=== PATIENT | female | born 1945 | race Caucasian/White ===

== ENCOUNTER 2017-09-15 18:36 | Emergency (ER) | payer MEDICARE, OTHER ==
--- NOTE | 2017-09-15 18:39 | ER Report ---
History and Physical Time Seen By MD: 18:38 HPI/ROS CHIEF COMPLAINT: Shortness of breath HISTORY OF PRESENT ILLNESS: Patient is a 71-year-old female here with complaints of shortness breath which has intermittently been worsening over the past 8 days well on a road trip. Patient has a reported history of COPD, heart failure and reports significant improvement after EMS gave her a DuoNeb. She also reports not taking her diuretic because she is on a road trip. She has had several episodes similar to this over the past several days which she reports caused her similar difficulty breathing, improved with her nebulizers. At baseline, the patient is on 2 L nasal cannula during the day and a breathing machine at night. She is currently on 4 L nasal cannula maintaining sats at 95% . She reports moderate relief of respiratory distress since receiving her nebulizer treatments. Last nebulizer treatments for this morning. Patient is accompanied by her sister. REVIEW OF SYSTEMS: Constitutional: No fever, no chills. Eyes: No discharge. ENT: No sore throat. Cardiovascular: No chest pain, + mid chest pressure, no palpitations. Respiratory: + intermittent dry cough, ++ shortness of breath on nasal cannula. Gastrointestinal: No abdominal pain, no vomiting. Genitourinary: No hematuria. Musculoskeletal: No back pain. Skin: No rashes. Neurological: No headache. Allergies: Coded Allergies: metoclopramide (Verified Allergy, Severe, ANAPHYLAXIS, 09/15/17) Home Meds Active Scripts Levofloxacin 750 Mg Tab (LEVAQUIN 750 MG TAB) 750 Mg Tablet, 750 MG PO QDAY for 4 Days, #4 TAB Prov:RONALD JENKINS DO 09/15/17 Prednisone (PREDNISONE) 20 Mg Tablet, 40 MG PO QDAY for 4 Days, #8 TAB Prov:JENKINSRONALD ENNIS S DO 09/15/17 Reported Medications Guaifenesin (MUCINEX) 600 Mg Tablet.er, 600 MG PO 09/15/17 Mv, Min #36/Iron,Carbonyl/Fa (GERITOL COMPLETE TABLET) 1 Each Tablet, 1 EACH PO QDAY 09/15/17 Cinnamon Bark (CINNAMON) 500 Mg Capsule, 1000 MG PO QDAY, CAPSULE 09/15/17 Calcium Carbonate/Mag Oxide/Zn (FDNKWRT-ELXDUMERZ-CIZI CAPLET) 1 Each Tablet, 1 EACH PO QDAY 09/15/17 Vitamin B Complex & Vit C No.4 (SUPER B COMPLEX) 150 Mg Tablet, 150 MG PO QDAY 09/15/17 Biotin (BIOTIN) 10 Mg Tablet, 10 MG PO 09/15/17 Aspirin (ASPIR 81) 81 Mg Tablet.dr, 81 MG PO QDAY, TAB 09/15/17 Ergocalciferol (Vitamin D2) (ERGOCALCIFEROL) 8,000 Unit/1 Ml Drops, 61579 UNIT PO 09/15/17 Sucralfate (CARAFATE) 1 Gm Tablet, 1 GM PO QDAY 09/15/17 Potassium Chloride (KLOR-CON 10) 10 Meq Tablet.er, 10 MEQ PO QDAY 09/15/17 Losartan Potassium (LOSARTAN POTASSIUM) 50 Mg Tablet, 50 MG PO QDAY 09/15/17 Glimepiride (AMARYL) 2 Mg Tablet, 2 MG PO BID 09/15/17 Pitavastatin Calcium (LIVALO) 2 Mg Tablet, 2 MG PO 09/15/17 Nitroglycerin (NITROSTAT) 0.4 Mg Subl, 0.4 MG SL Q5MIN 09/15/17 Mupirocin Calcium (BACTROBAN) 15 Gm Cream..g., 0 TP TID 09/15/17 Fluticasone Prop 50 Mcg Ns (FLONASE 50 MCG NS) 16 Gm Willow.susp, 1 SPRAY NS BID , BOT 09/15/17 Furosemide (LASIX) 20 Mg Tablet, 1 TAB PO Q8H, TAB 09/15/17 Etodolac (ETODOLAC) 400 Mg Tablet, 400 MG PO PRN 09/15/17 Nystatin (Nystatin) 100,000 Unit/Ml Oral.susp, 1 ML PO PRN 09/15/17 Roflumilast (DALIRESP) 0.5 Mg Tab, 0.5 MG PO QDAY, TAB 09/15/17 Budesonide (PULMICORT) 1 Mg/2 Ml Ampul.neb, 1 MG IH BID, ML 09/15/17 Arformoterol Tartrate (BROVANA) 15 Mcg/2 Ml Vial.neb, 15 MCG IH QAM 09/15/17 Albuterol Sulfate 0.083% (ALBUTEROL SULFATE 0.083%) 2.5 Mg/3 Ml Vial.neb, 2.5 MG INH PRN, INH 09/15/17 Albuterol Sulfate 90 Mcg/Act (PROAIR HFA 90 MCG/ACT) 8.5 Gm Hfa.aer.ad, 2 PUFF IH Q4-6H, INHALER 09/15/17 Past Medical/Surgical History Myocardial infarction, heart failure, hypertension, hyperlipidemia and PE, GERD , diabetes Constitutional Vital Sign - Last 24 Hours 09/15/17 09/15/17 09/15/17 09/15/17 18:36 18:38 18:39 18:51 Temp 98.2 Pulse 114 Resp 24 B/P (MAP) 138/122 138/122 (127) 167/83 (111) Pulse Ox 92 89 O2 Delivery Nasal Cannula 09/15/17 09/15/17 09/15/17 09/15/17 19:00 19:06 19:10 19:15 Pulse 93 95 Resp 17 16 B/P (MAP) 182/80 (114) Pulse Ox 94 O2 Flow Rate 4.0 09/15/17 09/15/17 09/15/17 09/15/17 19:51 19:56 19:56 20:00 Pulse 95 Resp 16 B/P (MAP) 158/142 (147) 208/71 (116) Pulse Ox 95 O2 Delivery Nasal Cannula O2 Flow Rate 4.0 09/15/17 09/15/17 09/15/17 09/15/17 20:06 20:11 20:41 20:46 Pulse 85 90 93 95 Resp 9 17 B/P (MAP) 186/86 (119) Pulse Ox 99 96 96 97 09/15/17 09/15/17 09/15/17 20:59 21:01 21:05 B/P (MAP) 207/99 (135) 230/108 (148) 188/98 (128) Physical Exam General Appearance: The patient is alert, has no immediate need for airway protection and no signs of toxicity. + mild respiratory distress, making full sentences, no accessory muscle use Eyes: Pupils equal and round no pallor or injection. ENT, Mouth: Mucous membranes are moist. Respiratory: + diffuse wheezing b/l lungs, + diminished at bases Cardiovascular: Sinus tachycardia Gastrointestinal: Abdomen is soft and non tender, no masses, bowel sounds normal. Neurological: No focal deficits Skin: Warm and dry, no rashes. Musculoskeletal: Neck is supple non tender. Extremities are nontender, nonswollen and have full range of motion. DIFFERENTIAL DIAGNOSIS: After history and physical exam differential diagnosis was considered for shortness of breath including but not limited to pulmonary infectious process, COPD, asthma, pulmonary embolus and congestive heart failure. Medical Decision Making Data Points Result Diagram: 09/15/17183909/15/171839 Laboratory Hematology Test 09/15/17 18:40 09/15/17 19:45 Red Blood Count 5.13 M/uL (4.17-5.56) Mean Corpuscular Volume 88.0 fL (80.0-96.0) Mean Corpuscular Hemoglobin 29.2 pg (26.0-33.0) Mean Corpuscular Hemoglobin Concent 33.2 g/dL (32.0-36.0) Red Cell Distribution Width 14.2 % (11.5-14.5) Mean Platelet Volume 7.7 fL (7.2-11.1) Neutrophils (%) (Auto) 41.7 % (39.4-72.5) Lymphocytes (%) (Auto) 46.8 % (17.6-49.6) Monocytes (%) (Auto) 6.3 % (4.1-12.4) Eosinophils (%) (Auto) 4.1 % (0.4-6.7) Basophils (%) (Auto) 1.1 % (0.3-1.4) Nucleated RBC Relative Count (auto) 0.1 /100WBC Neutrophils # (Auto) 6.4 K/uL (2.0-7.4) Lymphocytes # (Auto) 7.1 K/uL (1.3-3.6) Monocytes # (Auto) 1.0 K/uL (0.3-1.0) Eosinophils # (Auto) 0.6 K/uL (0.0-0.5) Basophils # (Auto) 0.2 K/uL (0.0-0.1) Nucleated RBC Absolute Count (auto) 0.02 K/uL Peripheral Blood Smear Yes Y/N Sodium Level 141 mmol/L (137-145) Potassium Level 4.1 mmol/L (3.5-5.0) Chloride Level 100 mmol/L (98-107) Carbon Dioxide Level 30 mmol/L (22-31) Blood Urea Nitrogen 17 mg/dl (7-18) Creatinine 0.90 mg/dl (0.52-1.04) Glomerular Filtration Rate Calc > 60.0 Random Glucose 190 mg/dl (75-110) Calcium Level 9.4 mg/dl (8.4-10.2) Total Bilirubin 0.4 mg/dl (0.2-1.3) Aspartate Amino Transf (AST/SGOT) 60 U/L (0-35) Alanine Aminotransferase (ALT/SGPT) 74 U/L (0-56) Alkaline Phosphatase 112 U/L (0-126) Troponin I < 0.012 ng/ml B-Type Natriuretic Peptide 79 pg/ml (0-100) Total Protein 7.9 g/dl (6.3-8.2) Albumin 4.1 g/dl (3.5-5.0) Urine Color Yellow Urine Clarity Slightly-cloudy Urine pH 5.0 pH (4.8-9.5) Urine Specific [place] 1.017 Urine Protein 100 mg/dL (NEGATIVE) Urine Glucose (UA) 500 mg/dL (NEGATIVE) Urine Ketones Negative mg/dL (NEGATIVE) Urine Blood Negative (NEGATIVE) Urine Nitrite Negative (NEGATIVE) Urine Bilirubin Negative (NEGATIVE) Urine Urobilinogen Negative mg/dL (0.2-1.9) Urine Leukocyte Esterase Small (NEGATIVE) Urine RBC 1 /HPF (0-2/HPF) Urine WBC 76 /HPF (0-5/HPF) Urine Squamous Epithelial Cells Many /LPF (</=FEW) Urine Bacteria Many /HPF (NONE-FEW) Urine Mucus Few /HPF (NONE-FEW) Chemistry Test 09/15/17 18:40 09/15/17 19:45 White Blood Count 15.2 k/uL (4.5-11.0) Red Blood Count 5.13 M/uL (4.17-5.56) Hemoglobin 15.0 g/dL (12.0-16.0) Hematocrit 45.2 % (34.0-47.0) Mean Corpuscular Volume 88.0 fL (80.0-96.0) Mean Corpuscular Hemoglobin 29.2 pg (26.0-33.0) Mean Corpuscular Hemoglobin Concent 33.2 g/dL (32.0-36.0) Red Cell Distribution Width 14.2 % (11.5-14.5) Platelet Count 393 K/uL (150-450) Mean Platelet Volume 7.7 fL (7.2-11.1) Neutrophils (%) (Auto) 41.7 % (39.4-72.5) Lymphocytes (%) (Auto) 46.8 % (17.6-49.6) Monocytes (%) (Auto) 6.3 % (4.1-12.4) Eosinophils (%) (Auto) 4.1 % (0.4-6.7) Basophils (%) (Auto) 1.1 % (0.3-1.4) Nucleated RBC Relative Count (auto) 0.1 /100WBC Neutrophils # (Auto) 6.4 K/uL (2.0-7.4) Lymphocytes # (Auto) 7.1 K/uL (1.3-3.6) Monocytes # (Auto) 1.0 K/uL (0.3-1.0) Eosinophils # (Auto) 0.6 K/uL (0.0-0.5) Basophils # (Auto) 0.2 K/uL (0.0-0.1) Nucleated RBC Absolute Count (auto) 0.02 K/uL Peripheral Blood Smear Yes Y/N Glomerular Filtration Rate Calc > 60.0 Calcium Level 9.4 mg/dl (8.4-10.2) Total Bilirubin 0.4 mg/dl (0.2-1.3) Aspartate Amino Transf (AST/SGOT) 60 U/L (0-35) Alanine Aminotransferase (ALT/SGPT) 74 U/L (0-56) Alkaline Phosphatase 112 U/L (0-126) Troponin I < 0.012 ng/ml B-Type Natriuretic Peptide 79 pg/ml (0-100) Total Protein 7.9 g/dl (6.3-8.2) Albumin 4.1 g/dl (3.5-5.0) Urine Color Yellow Urine Clarity Slightly-cloudy Urine pH 5.0 pH (4.8-9.5) Urine Specific [place] 1.017 Urine Protein 100 mg/dL (NEGATIVE) Urine Glucose (UA) 500 mg/dL (NEGATIVE) Urine Ketones Negative mg/dL (NEGATIVE) Urine Blood Negative (NEGATIVE) Urine Nitrite Negative (NEGATIVE) Urine Bilirubin Negative (NEGATIVE) Urine Urobilinogen Negative mg/dL (0.2-1.9) Urine Leukocyte Esterase Small (NEGATIVE) Urine RBC 1 /HPF (0-2/HPF) Urine WBC 76 /HPF (0-5/HPF) Urine Squamous Epithelial Cells Many /LPF (</=FEW) Urine Bacteria Many /HPF (NONE-FEW) Urine Mucus Few /HPF (NONE-FEW) Urinalysis Test 09/15/17 19:45 Urine Color Yellow Urine Clarity Slightly-cloudy Urine pH 5.0 pH (4.8-9.5) Urine Specific [place] 1.017 Urine Protein 100 mg/dL (NEGATIVE) Urine Glucose (UA) 500 mg/dL (NEGATIVE) Urine Ketones Negative mg/dL (NEGATIVE) Urine Blood Negative (NEGATIVE) Urine Nitrite Negative (NEGATIVE) Urine Bilirubin Negative (NEGATIVE) Urine Urobilinogen Negative mg/dL (0.2-1.9) Urine Leukocyte Esterase Small (NEGATIVE) Urine RBC 1 /HPF (0-2/HPF) Urine WBC 76 /HPF (0-5/HPF) Urine Squamous Epithelial Cells Many /LPF (</=FEW) Urine Bacteria Many /HPF (NONE-FEW) Urine Mucus Few /HPF (NONE-FEW) EKG/Imaging EKG Interpretation 12 lead EKG: Sinus tachycardia, rate 103, no ischemic changes or T-wave abnormalities, QTc interval 471 Rhythm: Sinus tachycardia regular rhythm [place]: normal QRS: normal ST segments: normal Monitor Interpretation: Normal Sinus Rhythm Imaging 2 VIEWS CHEST INDICATION: Respiratory distress. Chest pain. COMPARISON: None available FINDINGS: Cardiomediastinal silhouette and pulmonary vessels within normal limits. There is no focal infiltrate or lobar consolidation. There is no pneumothorax or pleural effusion. On the inferior posterior aspect of the lungs on the lateral view there is a small nodular opacity overlying the posterior elements of the spine. This not appreciated on the frontal view. No other nodules. Chronic interstitial changes. Upper abdomen is unremarkable. No acute bony abnormality. IMPRESSION: 1. No acute cardiopulmonary process. 2. On the lateral view there is question of a nodular opacity seen in the inferior posterior aspect of the chest. Unsure if this is a lung nodule or overlapping structures. A follow-up bilateral, shallow oblique view of the lateral chest can evaluate for overlapping shadows or a parenchymal nodule. ED Course/Re-evaluation ED Course Patient is a 71-year-old female here with complaints of shortness breath, mid sternal chest pressure in the setting of COPD, CHF, diabetes, prior history of cardiac disease, status post IA. Patient reports worsening shortness breath while on her road trip from [place]. She does use supplemental oxygen baseline however requires more oxygen today, currently 4 L instead of 2 L baseline. She has noted that her oxygen levels on a sliding liters has dropped into the 70s. Patient also notes that she has been taking less diuretic than usual because of her trip. She did have significant relief of symptoms with DuoNeb and this is administered by EMS shortly prior to arrival. She did complain of having similar episodes throughout the course of the last 8 days. Patient is mentating appropriately at time of evaluation, in no acute distress. EKG showed no ischemic changes. Patient is likely suffering from symptoms of COPD exacerbation or CHF exacerbation due to clinical presentation however due to patient history, a cardiac enzyme was added as well and was undetectable. Chest x-ray showed no acute effusions or consolidations. Patient was given duonebs, prednisone. Patient responded well to treatments and was ambulating without significant shortness of breath. I discussed the findings with the patient and she voiced understanding. I discussed the patient with Dr. Molina who agreed that the patient was suitable for outpatient treatment for COPD exacerbation. She was given scripts for prednisone and Levaquin and was stable at time of discharge, well-appearing in no acute distress. Decision to Disposition Date: Sep 15, 2017 Decision to Disposition Time: 21:36 Depart Departure Latest Vital Signs Vital Signs Date Time Temp Pulse Resp B/P (MAP) Pulse Ox O2 Delivery O2 Flow Rate FiO2 09/15/17 21:05 188/98 (128) 09/15/17 20:46 95 97 09/15/17 20:11 17 09/15/17 19:56 Nasal Cannula 4.0 09/15/17 18:38 98.2 Impression: Primary Impression: Shortness of breath Additional Impression: COPD exacerbation Condition: Improved Disposition: HOME OR SELF-CARE New Scripts Levofloxacin 750 Mg Tab (LEVAQUIN 750 MG TAB) 750 Mg Tablet 750 MG PO QDAY for 4 Days, #4 TAB Prov: RONALD JENKINS DO 09/15/17 Prednisone (PREDNISONE) 20 Mg Tablet 40 MG PO QDAY for 4 Days, #8 TAB Prov: RONALD JENKINS DO 09/15/17 Patient Instructions: COPD (Chronic Obstructive Pulmonary Disease) (ED) Additional Instructions: Please take one tablet of Levaquin daily for the next 4 days, you received your 1st dose here today. Please take 2 tablets of prednisone daily for the next 4 days. Please continue taking her nebulizer treatments and inhalers as prescribed. Please return promptly if you develop fevers, difficulty breathing, chest pains, worsening shortness of breath.You may take 2-6 puffs of pro-air every 6 hours by having an episode of difficulty breathing. Problem Qualifiers RONALD JENKINS DO Sep 15, 2017 18:39
[2017-09-15] MEDS ORDERED: predniSONE 20 MG TAB PO ONE (18:40)
--- NOTE | 2017-09-15 19:01 | EKG ---
FACILITY: PATIENT NAME: MADELIN ZABALA : [id number] MR: [id number] V: [id number] EXAM DATE: ORDERING PHYSICIAN: RONALD JENKINS TECHNOLOGIST: DEEPA Bejarano Reason : Blood Pressure : / mmHG Vent. Rate : 103 BPM Atrial Rate : 103 BPM P-R Int : 166 ms QRS Dur : 098 ms QT Int : 360 ms P-R-T Axes : 071 076 069 degrees QTc Int : 471 ms Sinus tachycardia Otherwise normal ECG No previous ECGs available Confirmed by JOSE ANGEL CEDEÑO ([id number]) on 09/16/2017 6:48:15 AM Referred By: IRIS Confirmed By:JOSE ANGEL CEDEÑO
[2017-09-15] MEDS: ALBUTEROL/IPRATROPIUM 3 ML NEB NEB SCH ×2 (19:10→19:56)
[2017-09-15 19:12] LABS: PLATELET COUNT, AUTOMATED 393 K/uL (150-450)
[2017-09-15] MEDS ORDERED: BUDE1AMP2 IH (19:14)
[2017-09-15] MEDS ORDERED: [UNRECOGNIZED DRUG - CODE] PO (19:14)
[2017-09-15] MEDS ORDERED: LOSA50TA72 PO (19:14)
[2017-09-15] MEDS ORDERED: ROF0.5PT PO (19:14)
[2017-09-15] MEDS ORDERED: GLIM2TAB42 PO (19:14)
[2017-09-15] MEDS ORDERED: ALBU2.5V36 INH (19:14)
[2017-09-15] MEDS ORDERED: MUPI15CR10 TP (19:14)
[2017-09-15] MEDS ORDERED: PITA2TAB PO (19:14)
[2017-09-15] MEDS ORDERED: POTA-23 PO (19:14)
[2017-09-15] MEDS ORDERED: ASPI-1471 PO (19:14)
[2017-09-15] MEDS ORDERED: NIT4 SL (19:14)
[2017-09-15] MEDS ORDERED: FURO20TA19 PO (19:14)
[2017-09-15] MEDS ORDERED: ALBU8.5H IH (19:14)
[2017-09-15] MEDS ORDERED: GUAI600T57 PO (19:14)
[2017-09-15] MEDS ORDERED: IRON1TAB PO (19:14)
[2017-09-15] MEDS ORDERED: [UNRECOGNIZED DRUG - CODE] PO (19:14)
[2017-09-15] MEDS ORDERED: VITA150T2 PO (19:14)
[2017-09-15] MEDS ORDERED: SUCR1TAB85 PO (19:14)
[2017-09-15] MEDS ORDERED: ETOD-1 PO (19:14)
[2017-09-15] MEDS ORDERED: FLUT16SP19 NS (19:14)
[2017-09-15] MEDS ORDERED: NYST100016 PO (19:14)
[2017-09-15] MEDS ORDERED: ARFO15VI IH (19:14)
[2017-09-15] MEDS ORDERED: BIOT10TA3 PO (19:14)
[2017-09-15] MEDS ORDERED: CINN500C12 PO (19:14)
[2017-09-15] MEDS ORDERED: LEVOFLOXACIN 750 MG TAB PO ONE (19:45)
[2017-09-15] MEDS ORDERED: LEVO750T44 PO (19:46)
[2017-09-15] MEDS ORDERED: PRED20TA6 PO (19:46)
--- NOTE | 2017-09-15 19:59 | RADIOLOGY IMAGING REPORT ---
FACILITY: [facility] - [place] PATIENT NAME: Chrissy Camp : 1945 MR: [id number] V: [id number] EXAM DATE: ORDERING PHYSICIAN: RONALD JENKINS TECHNOLOGIST: Location: [facility] [place] Patient: Chrissy Camp : 1945 Visit/Account:[id number] Date of Sevice: 09/15/2017 2 VIEWS CHEST INDICATION: Respiratory distress. Chest pain. COMPARISON: None available FINDINGS: Cardiomediastinal silhouette and pulmonary vessels within normal limits. There is no focal infiltrate or lobar consolidation. There is no pneumothorax or pleural effusion. On the inferior posterior aspect of the lungs on the lateral view there is a small nodular opacity ov erlying the posterior elements of the spine. This not appreciated on the frontal view. No other nodul es. Chronic interstitial changes. Upper abdomen is unremarkable. No acute bony abnormality. IMPRESSION: 1. No acute cardiopulmonary process. 2. On the lateral view there is question of a nodular opacity seen in the inferior posterior aspect o f the chest. Unsure if this is a lung nodule or overlapping structures. A follow-up bilateral, shallo w oblique view of the lateral chest can evaluate for overlapping shadows or a parenchymal nodule. Report Dictated By: Kaz Mcgee at 09/15/2017 7:52 PM Report E-Signed By: Kaz Mcgee at 09/15/2017 7:56 PM WSN:[id number]
[2017-09-15 21:05] VITALS: BP 188/98
[2017-09-15] MEDS ORDERED: ALBUTEROL SULFATE 90 MCG/ACT 8.5 GM HNH INH PRN (21:05)
== END 2017-09-15 21:34 | disposition home or self-care (01) ==
LOC: ER 18:40
DX: J44.1 Chronic obstructive pulmonary disease with (acute) exacerbation (principal); E11.9 Type 2 diabetes mellitus without complications; I10 Essential (primary) hypertension; E78.5 Hyperlipidemia, unspecified; K21.9 Gastro-esophageal reflux disease without esophagitis; I50.9 Heart failure, unspecified
CPT/HCPCS: 71046; 81001; 83880; 84484; 85025; 87077; 87088; 87186; 93005; 94640; 99284; A9270; J7512; J7620; 82040; 82247; 82310; 82374; 82435; 82565; 82947; 84075; 84132; 84155; 84295; 84450; 84460; 84520

== ENCOUNTER → 2017-09-15 | Outpatient (CLI) | payer MEDICARE, OTHER ==
[~2017-09-15] MED LIST: ALBU2.5V36 INH; ALBU8.5H IH; ARFO15VI IH; ASPI-1471 PO; BIOT10TA3 PO; BUDE1AMP2 IH; CINN500C12 PO; ETOD-1 PO; FLUT16SP19 NS; FURO20TA19 PO; GLIM2TAB42 PO; GUAI600T57 PO; IRON1TAB PO; LEVO750T44 PO; LOSA50TA72 PO; MUPI15CR10 TP; NIT4 SL; NYST100016 PO; PITA2TAB PO; POTA-23 PO; PRED20TA6 PO; ROF0.5PT PO; SUCR1TAB85 PO; VITA150T2 PO; [UNRECOGNIZED DRUG - CODE] PO; [UNRECOGNIZED DRUG - CODE] PO
== END ==
LOC: AMB 18:17
PROVIDERS: ATTEND Nurse Practitioner
DX: J44.1 Chronic obstructive pulmonary disease with (acute) exacerbation (principal)
CPT/HCPCS: A0425; A0427